=== PATIENT | male | born 1935 | race Caucasian/White ===

== ENCOUNTER 2023-11-27 17:14 | Inpatient (IN) | payer OTHER ==
[~2023-11-27] VITALS: Ht 185.4 cm; Wt 79.4 kg
[2023-11-27 17:15] VITALS: BP_SYST 113; PULSE 100; PULSE 75; RESP 18; TEMP 98.1; TEMP 98.4; O2SAT 98
[2023-11-27] MEDS ORDERED: iohexoL 350 mgI/mL, 100 ML INFUS..BTL IV ONE (17:56)
[2023-11-27 17:59] LABS: BASOPHILS # (AUTO) 0.1 K/uL (0.0-0.2); BASOPHILS % (AUTO) 1.1 % (0.0-2.0); EOSINOPHILS # (AUTO) 0.2 K/uL (0.0-0.4); EOSINOPHILS % (AUTO) 4.3 % (0.0-4.0); HEMATOCRIT 43.6 % (36-54); HEMOGLOBIN 14.8 g/dL (14.0-18.0); LYMPHOCYTES # (AUTO) 1.1 K/uL (1.0-5.5); MEAN CORPUSCULAR HEMOGLOBIN 30 pg (27-31); MEAN CORPUSCULAR HGB CONC 34 % (32-36); MEAN CORPUSCULAR VOLUME 89 fL (79.0-98.0); MONOCYTES # (AUTO) 0.6 K/uL (0.0-1.0); MONOCYTES % (AUTO) 10.6 % (1.7-9.3); NEUTROPHILS # (AUTO) 3.5 K/uL (1.8-7.7); PLATELET COUNT (AUTO) 195 K/uL (130-430); RED BLOOD CELL COUNT(AUTO) 4.91 MIL/uL (4.2-6.2); RED CELL DISTRIBUTION WIDTH 14.5 % (9.0-15.0); WHITE BLOOD COUNT (AUTO) 5.5 K/uL (4.8-10.8)
[2023-11-27 18:06] LABS: INR 1.2 (0.80-1.20); PROTHROMBIN TIME 12.1 SECS (9.5-12.5)
[2023-11-27 18:14] LABS: HEMOGLOBIN A1C 6.5 % (<5.7)
[2023-11-27 18:24] LABS: ANION GAP 5 (5-15); CALCIUM 9.7 mg/dL (8.4-11.0); CARBON DIOXIDE 32 mmol/L (23-29); CHLORIDE 101 mmol/L (98-107); CREATININE 1.57 mg/dL (0.55-1.30); GLUCOSE 104 mg/dL (74-106); POTASSIUM 4.3 mmol/L (3.5-5.1); SODIUM SERUM 138 mmol/L (136-145); UREA NITROGEN, BLOOD 23 mg/dL (8-21)
[2023-11-27] MEDS: D5/0.45 NS 1,000 ML IV SCH (20:38)
[2023-11-27 21:33] LABS: BILIRUBIN,URINE NEGATIVE (NEGATIVE); BLOOD, URINE NEGATIVE (NEGATIVE); CLARITY/URINE CLEAR (CLEAR); COLOR,URINE YELLOW (YELLOW); GLUCOSE,URINE NEGATIVE (NEGATIVE); KETONES,URINE NEGATIVE (NEGATIVE); LEUKOCYTE ESTERASE ,URINE NEGATIVE (NEGATIVE); NITRITE, URINE NEGATIVE (NEGATIVE); PH,URINE 5.5 (5.0-8.0); PROTEIN URINE NEGATIVE (NEGATIVE); UROBILINOGEN,URINE 0.2 (0.2-1.0)
[2023-11-27] MEDS ORDERED: CARV6.2554 PO (21:35)
[2023-11-27] MEDS ORDERED: LISI1TAB55 PO (21:35)
[2023-11-27] MEDS ORDERED: RIVA15TA PO (21:35)
[2023-11-27] MEDS ORDERED: FENO150C4 PO (21:35)
[2023-11-27] MEDS ORDERED: EZET10TA30 PO (21:35)
[2023-11-27] MEDS ORDERED: ASPI-1393 PO (21:35)
[2023-11-27] MEDS ORDERED: ROSU20TA73 PO (21:35)
[2023-11-27 21:39] VITALS: O2SAT 96
[2023-11-27 21:41] LABS: BARBITURATE, URINE NEGATIVE (NEG <=200); BENZODIAZEPINE, URINE NEGATIVE (NEG <=150); CANNABINOID, URINE NEGATIVE (NEG <=50); COCAINE, URINE NEGATIVE (NEG <=150); METHAMPHETAMINES SCREEN,URINE NEGATIVE (NEG <=500); OPIATE, URINE NEGATIVE (NEG <=100); PHENCYCLIDINE SCREEN,URINE NEGATIVE (NEG <=25); UR TRICYCLIC ANTIDEPRESSANTS NEGATIVE (NEG <=300); URINE AMPHETAMINE NEGATIVE (NEG <=500); URINE METHADONE NEGATIVE (NEG <=200); URINE OXYCODONE SCREEN NEGATIVE (NEG <=100)
[2023-11-27 21:46] VITALS: BP_SYST 117; PULSE 65; RESP 18; TEMP 97.2; O2SAT 96
[2023-11-28] VITALS: BP_SYST 130; PULSE 74; RESP 18; TEMP 97.4; O2SAT 97
[2023-11-28 08:00] VITALS: BP_SYST 111; PULSE 71; RESP 16; TEMP 97.6; O2SAT 95
[2023-11-28 10:00] VITALS: O2SAT 98
[2023-11-28] MEDS ORDERED: ACETAMINOPHEN 325 MG TABLET PO PRN ×2 (10:30→10:45)
[2023-11-28] MEDS ORDERED: HYDROcodone/ACETAMIN 10-325 MG TAB PO PRN (10:30)
[2023-11-28] MEDS ORDERED: LORazepam 2 MG/ML VIAL IVP PRN (10:30)
[2023-11-28] MEDS ORDERED: HYDROcodone/ACETAMIN 5-325 MG TAB (NORCO/ VICODIN) PO PRN (10:30)
[2023-11-28] MEDS ORDERED: ONDANSETRON HCL 4 MG/2 ML VIAL IVP PRN (10:30)
[2023-11-28] MEDS ORDERED: NALOXONE HCL 0.4 MG/ML AMP (NARCAN) IVP PRN ×2 (10:30)
[2023-11-28 11:04] VITALS: BP_SYST 107; PULSE 64; RESP 16; TEMP 96.2; O2SAT 95
[2023-11-28 11:40] LABS: BASOPHILS % (AUTO) 0.7 % (0.0-2.0); EOSINOPHILS # (AUTO) 0.2 K/uL (0.0-0.4); EOSINOPHILS % (AUTO) 2.9 % (0.0-4.0); HEMATOCRIT 44.4 % (36-54); HEMOGLOBIN 14.7 g/dL (14.0-18.0); LYMPHOCYTES % (AUTO) 17.2 % (20.5-51.5); MEAN CORPUSCULAR HEMOGLOBIN 30 pg (27-31); MEAN CORPUSCULAR HGB CONC 33 % (32-36); MEAN CORPUSCULAR VOLUME 90 fL (79.0-98.0); MONOCYTES # (AUTO) 0.4 K/uL (0.0-1.0); MONOCYTES % (AUTO) 7.8 % (1.7-9.3); NEUTROPHILS # (AUTO) 4.1 K/uL (1.8-7.7); NEUTROPHILS % (AUTO) 71.4 % (40.0-70.0); PLATELET COUNT (AUTO) 180 K/uL (130-430); RED BLOOD CELL COUNT(AUTO) 4.94 MIL/uL (4.2-6.2); RED CELL DISTRIBUTION WIDTH 14.9 % (9.0-15.0); WHITE BLOOD COUNT (AUTO) 5.7 K/uL (4.8-10.8)
[2023-11-28] MEDS: RIVAROXABAN 15 MG TABLET PO ONE (11:46)
[2023-11-28] MEDS: lisinopriL 20 MG TABLET PO ONE (11:47)
[2023-11-28] MEDS: HYDROCHLOROTHIAZIDE 12.5 MG CAPSULE (HCTZ) PO ONE (11:48)
[2023-11-28] MEDS: ASPIRIN 81 MG TABLET(ECOTRIN) PO ONE (11:48)
[2023-11-28 11:56] LABS: ANION GAP 6 (5-15); CARBON DIOXIDE 28 mmol/L (23-29); CHLORIDE 103 mmol/L (98-107); CHOLESTEROL 134 mg/dL (<200); CREATININE 1.37 mg/dL (0.55-1.30); GLUCOSE 154 mg/dL (74-106); HDL CHOLESTEROL 52 mg/dL (>45); POTASSIUM 4.1 mmol/L (3.5-5.1); SODIUM SERUM 137 mmol/L (136-145); TRIGLYCERIDES 64 mg/dL (30-150); UREA NITROGEN, BLOOD 16 mg/dL (8-21)
[2023-11-28 15:04] VITALS: BP_SYST 110; PULSE 69; RESP 16; TEMP 96.7; O2SAT 98
[2023-11-28 20:00] VITALS: O2SAT 96
[2023-11-28] MEDS: EZETIMIBE 10 MG TABLET PO SCH (21:13)
[2023-11-28] MEDS: CARVEDILOL 6.25 MG TABLET (COREG) PO SCH (21:14)
[2023-11-28] MEDS: ATORVASTATIN 20 MG TABLET PO SCH (21:15)
[2023-11-29 00:13] VITALS: BP_SYST 108; PULSE 69; RESP 18; TEMP 97.6; O2SAT 96
[2023-11-29 06:27] LABS: ANION GAP 7 (5-15); CALCIUM 9.1 mg/dL (8.4-11.0); CARBON DIOXIDE 29 mmol/L (23-29); CHLORIDE 104 mmol/L (98-107); CREATININE 1.32 mg/dL (0.55-1.30); GLUCOSE 98 mg/dL (74-106); SODIUM SERUM 140 mmol/L (136-145); UREA NITROGEN, BLOOD 16 mg/dL (8-21)
[2023-11-29 06:31] LABS: BASOPHILS % (AUTO) 0.7 % (0.0-2.0); EOSINOPHILS # (AUTO) 0.2 K/uL (0.0-0.4); EOSINOPHILS % (AUTO) 3.7 % (0.0-4.0); HEMATOCRIT 42.8 % (36-54); LYMPHOCYTES # (AUTO) 1.5 K/uL (1.0-5.5); LYMPHOCYTES % (AUTO) 27.9 % (20.5-51.5); MEAN CORPUSCULAR HEMOGLOBIN 30 pg (27-31); MEAN CORPUSCULAR HGB CONC 33 % (32-36); MEAN CORPUSCULAR VOLUME 90 fL (79.0-98.0); MONOCYTES # (AUTO) 0.6 K/uL (0.0-1.0); MONOCYTES % (AUTO) 10.4 % (1.7-9.3); NEUTROPHILS # (AUTO) 3.1 K/uL (1.8-7.7); NEUTROPHILS % (AUTO) 57.3 % (40.0-70.0); PLATELET COUNT (AUTO) 180 K/uL (130-430); RED BLOOD CELL COUNT(AUTO) 4.75 MIL/uL (4.2-6.2); RED CELL DISTRIBUTION WIDTH 14.5 % (9.0-15.0); WHITE BLOOD COUNT (AUTO) 5.4 K/uL (4.8-10.8)
[2023-11-29 08:00] VITALS: O2SAT 97
[2023-11-29] MEDS ORDERED: FENOFIBRATE 150 MG PO SCH (09:00)
[2023-11-29] MEDS: lisinopriL 20 MG TABLET PO SCH (09:00)
[2023-11-29] MEDS: HYDROCHLOROTHIAZIDE 12.5 MG CAPSULE (HCTZ) PO SCH (09:00)
[2023-11-29] MEDS: FENOFIBRATE 150 MG PO SCH (10:19)
[2023-11-29] MEDS: ASPIRIN 81 MG TABLET(ECOTRIN) PO SCH (10:19)
[2023-11-29] MEDS: RIVAROXABAN 15 MG TABLET PO SCH (10:22)
[2023-11-29 11:06] VITALS: BP_SYST 125; PULSE 62; RESP 16; TEMP 97.6; O2SAT 100
[2023-11-29 13:59] VITALS: BP_SYST 117; PULSE 77; RESP 18; TEMP 97.9; O2SAT 98
== END 2023-11-29 14:15 | disposition home or self-care (01) | DRG 683 ==
LOC: SED 17:14 → STU 20:14
PROVIDERS: ADMIT Preventive Medicine Preventive Medicine/Occupational Environmental Medicine; ATTEND Preventive Medicine Preventive Medicine/Occupational Environmental Medicine
DX: N17.9 Acute kidney failure, unspecified (principal); G45.9 Transient cerebral ischemic attack, unspecified; I25.10 Atherosclerotic heart disease of native coronary artery without angina pectoris; I48.91 Unspecified atrial fibrillation; I10 Essential (primary) hypertension; E78.5 Hyperlipidemia, unspecified; Z88.8 Allergy status to other drugs, medicaments and biological substances; Z95.5 Presence of coronary angioplasty implant and graft; Z79.82 Long term (current) use of aspirin; Z79.899 Other long term (current) drug therapy; E11.9 Type 2 diabetes mellitus without complications
CPT/HCPCS: 36415; 71045; 80048; 80061; 80307; 81001; 81003; 82948; 83037; 84484; 85025; 85610; 85730; 86886; 86900; 86901; 93005; 93306; 93880; 97116-GP; 97163-GP; 97530-GP; 99285; G0378; Q9967